=== PATIENT | female | born 1965 | race Hispanic/Latino ===

== ENCOUNTER 2022-04-05 12:08 | Emergency (ER) | payer OTHER ==
[2022-04-05] MEDS ORDERED: ALBUTEROL 2.5 MG/3 ML NEB SOL ONE (12:49)
[2022-04-05 13:10] LABS: Absolute Lymphocytes (CBC) 1.5 K/uL (0.7-4.9); Hematocrit 41.6 % (36.0-45.0); Lymphocytes % 19.7 % (15.3-44.8); MPV 8.9 fL (7.6-11.3); RBC Red Blood Cell Count 4.95 M/uL (3.86-4.86)
--- NOTE | 2022-04-05 13:15 | RAD REPORT ---
EXAM DESCRIPTION: Daisha Single View04/05/2022 1:00 pm CLINICAL HISTORY: sob COMPARISON: none FINDINGS: The lungs appear clear of acute infiltrate. The heart is normal size IMPRESSION: No acute abnormalities displayed
[2022-04-05 13:24] LABS: Protime INR 0.96
[2022-04-05 13:33] LABS: ALT/SGPT 55 U/L (12-78); AST/SGOT 29 U/L (15-37); Albumin 3.7 g/dL (3.4-5.0); Alkaline Phosphatase 115 U/L (45-117); BUN Blood Urea Nitrogen 10 mg/dL (7-18); Bicarbonate 26 mmol/L (21-32); Bilirubin Total 0.2 mg/dL (0.2-1.0); Glomerular Filtration Rate 102 ml/min (=/>90); Glucose Level 130 mg/dL (74-106); Lipase 138 U/L (73-393); Magnesium 2.3 mg/dL (1.8-2.4); NT PRO-BNP 56 pg/mL (<125); Potassium 3.7 mmol/L (3.5-5.1); Protein, Total 7.8 g/dL (6.4-8.2); Sodium Level 145 mmol/L (136-145)
[2022-04-05 13:34] LABS: Bilirubin Direct < 0.1 mg/dL (0-0.2)
--- NOTE | 2022-04-05 14:13 | RAD REPORT ---
EXAM DESCRIPTION: CT - Chest For Pe Angio - 04/05/2022 1:55 pm CLINICAL HISTORY: sob COMPARISON: None. TECHNIQUE: Dynamically enhanced axial 3 mm thick images of the chest were obtained during administra tion of <100> mL Isovue 370 IV contrast. Coronal and oblique reconstruction images were generated and reviewed. Exam utilizes a protocol for optimal evaluation of pulmonary arterial tree. Maximum intensity projections 3D imaging was utilized All CT scans are performed using dose optimization technique as appropriate and may include automated exposure control or mA/KV adjustment according to patient size. FINDINGS: A pulmonary embolus is not seen. A thoracic aortic aneurysm is not noted. A pleural effusion is not seen. A pericardial effusion is not seen. A lung consolidation is not present. IMPRESSION: Negative for a pulmonary embolism.
--- NOTE | 2022-04-05 14:35 | EDPHYS ---
Physician Documentation [facility] Name: Rolf Blackman Age: 56 yrs Sex: Female : 1965 Arrival Date: 04/05/2022 Time: 12:09 Bed 15 Private MD: MARYA Physician Mark iDckson HPI: 04/05 12:20 This 56 yrs old Female presents to ER via Ambulatory with complaints of jh7 Shortness Of Breath. 12:20 Onset: The symptoms/episode began/occurred this morning. Associated signs and symptoms: jh7 Pertinent positives: non-productive cough, Pertinent negatives: chest pain, dizziness, fever, loss of consciousness, nausea, vomiting. Patient states that she was in a meeting and suddenly became short of breath. States that she has a history of bad allergies and has had cough and congestion since this morning. She reports chest tightness, but denies any chest pain.. Historical: - Allergies: 12:18 No Known Allergies; tw2 - Home Meds: 12:18 None [Active]; tw2 - PMHx: 12:18 None; tw2 - PSHx: 12:18 left hand surgery; tw2 - Immunization history:: Client reports receiving the 2nd dose of the Covid vaccine. - Social history:: Smoking status: Patient denies any tobacco usage or history of. ROS: 12:20 Constitutional: Negative for fever, chills, and weight loss, ENT: Negative for injury, jh7 pain, and discharge, Cardiovascular: Negative for chest pain, palpitations, and edema, Abdomen/GI: Negative for abdominal pain, nausea, vomiting, diarrhea, and constipation, Back: Negative for injury and pain, Skin: Negative for injury, rash, and discoloration, Neuro: Negative for headache, weakness, numbness, tingling, and seizure. 12:20 Respiratory: Positive for cough, shortness of breath, Negative for hemoptysis, orthopnea, wheezing. 12:20 All other systems are negative. Exam: 12:20 Constitutional: This is a well developed, well nourished patient who is awake, alert, jh7 and in no acute distress. Cardiovascular: Regular rate and rhythm with a normal S1 and S2. No gallops, murmurs, or rubs. Normal PMI, no JVD. No pulse deficits. 12:20 Abdomen/GI: Soft, non-tender, with normal bowel sounds. No distension or tympany. No guarding or rebound. No evidence of tenderness throughout. Back: No spinal tenderness. No costovertebral tenderness. Full range of motion. Skin: Warm, dry with normal turgor. Normal color with no rashes, no lesions, and no evidence of cellulitis. Neuro: Awake and alert, GCS 15, oriented to person, place, time, and situation. Motor strength 5/5 in all extremities. Sensory grossly intact. Normal gait. 12:20 ENT: TM's: are normal, Nose: nasal drainage, and is seen coming from both nares, that is clear, Posterior pharynx: post nasal drainage. 12:20 Respiratory: the patient does not display signs of respiratory distress, Respirations: normal, Breath sounds: are clear throughout, Respiratory rate: 24 coughing on exam. Vital Signs: 12:16 BP 145 / 69; Pulse 92; Resp 17; Temp 99.2(TE); Pulse Ox 100% on R/A; Weight 65.77 kg tw2 (R); 12:35 BP 133 / 69; Pulse 93; Resp 16 S; Pulse Ox 100% on R/A; jg9 13:30 BP 118 / 68; Pulse 98; Resp 24 S; Pulse Ox 99% on R/A; jg9 14:30 BP 142 / 74; Pulse 103; Resp 13 S; Pulse Ox 99% on R/A; jg9 MDM: 12:21 Patient medically screened. [facility] 14:45 Differential diagnosis: asthma, pneumonia, pulmonary edema, Pulmonary Embolism. Data [facility] reviewed: vital signs, nurses notes, lab test result(s), EKG, radiologic studies, CT scan, plain films. Data interpreted: Pulse oximetry: is 99 %. Interpretation: normal. Counseling: I had a detailed discussion with the patient and/or guardian regarding: the historical points, exam findings, and any diagnostic results supporting the discharge/admit diagnosis, to return to the emergency department if symptoms worsen or persist or if there are any questions or concerns that arise at home. Special discussion: I discussed with the patient/guardian in detail that at this point there is no indication for admission to the hospital. It is understood, however, that if the symptoms persist or worsen the patient needs to return immediately for re-evaluation. ED course: Patient stable at time of discharge. 04/05 12:33 Order name: BMP; Complete Time: 13:58 [facility] 04/05 12:33 Order name: CBC with Diff; Complete Time: 13:33 [facility] 04/05 12:33 Order name: D-Dimer; Complete Time: 13:33 [facility] 02 12:33 Order name: Hepatic Function; Complete Time: 13:59 [facility] 04/05 12:33 Order name: Lipase; Complete Time: 13:59 [facility] 04/05 12:33 Order name: Magnesium; Complete Time: 13:59 [facility] 04/05 12:33 Order name: NT PRO-BNP; Complete Time: 13:59 [facility] 04/05 12:33 Order name: PT-INR; Complete Time: 13:33 [facility] 04/05 12:33 Order name: Ptt, Activated; Complete Time: 13:33 [facility] 04/05 12:33 Order name: XRAY CXR (1 view); Complete Time: 13:33 [facility] 04/05 12:33 Order name: EKG; Complete Time: 12:34 [facility] 04/05 13:35 Order name: CT Chest For PE Angio; Complete Time: 14:33 [facility] 04/05 14:10 Order name: COVID-19 SARS RT PCR (Document "Date of Onset" if Symptomatic); Complete aa5 Time: 16:30 04/05 12:33 Order name: Cardiac monitoring; Complete Time: 13:05 [facility] 04/05 12:33 Order name: EKG - Nurse/Tech; Complete Time: 13:05 [facility] 04/05 12:33 Order name: IV Saline Lock; Complete Time: 13:05 [facility] 04/05 12:33 Order name: Labs collected and sent; Complete Time: 13:05 [facility] 04/05 12:33 Order name: O2 Sat Monitoring; Complete Time: 13:05 [facility] EC:55 Rate is 87 beats/min. Rhythm is regular. QRS [place] is Normal. [place] interval is normal. QRS jh7 interval is normal. QT interval is normal. Clinical impression: NSR w/ Non-specific ST/T Changes. Administered Medications: 13:05 Drug: Albuterol 2.5 mg Route: Inhalation; jg9 Disposition Summary: 04/05/22 14:34 Discharge Ordered Location: Home [facility] Problem: new jh7 Symptoms: have improved [facility] Condition: Stable [facility] Diagnosis - Acute upper respiratory infection, unspecified [facility] - Shortness of breath [facility] Followup: [facility] - With: Private Physician - When: 2 - 3 days - Reason: Recheck today's complaints Discharge Instructions: - Discharge Summary Sheet [facility] - Shortness of Breath, Adult [facility] - Upper Respiratory Infection, Adult [facility] Forms: - Medication Reconciliation Form [facility] - Thank You Letter [facility] - Antibiotic Education [facility] - Prescription Opioid Use [facility] Prescriptions: - ProAir HFA 90 mcg/actuation Inhalation HFA aerosol inhaler - inhale 2 puff by INHALATION route every 4-6 hours; 1 Inhaler; Refills: 0, 7 Product Selection Permitted - [id number] 2-30-10 mg/5 mL Oral syrup - take 10 milliliter by ORAL route every 4 hours; 240 milliliter; Refills: 0, jh7 Product Selection Permitted Signatures: Dispatcher [employer] Shena Craig RN RN tw2 Charla Rascon RN RN jg9 Charla Edwards, FAST FOOD DELIVERY DRIVER [place] [id number]
--- NOTE | 2022-04-05 14:35 | ER ---
Nurse's Notes [facility] Name: Rolf Blackman Age: 56 yrs Sex: Female : 1965 Arrival Date: 04/05/2022 Time: 12:09 Bed 15 Private MD: Diagnosis: Acute upper respiratory infection, unspecified;Shortness of breath Presentation: 04/05 12:16 Chief complaint: she works with me. she said she started feeling dizzy and shaky and tw2 now she says she couldn't breathe. +COUGHING. Chief complaint: also she said she feels like her RIGHT arm is sleepy just today. Coronavirus screen: Client presents with at least one sign or symptom that may indicate coronavirus-19. Standard/surgical mask placed on the client. Provider contacted for isolation considerations. Coronavirus screen: difficulty breathing. Ebola Screen: Patient denies travel to an Ebola-affected area in the 21 days before illness onset. Initial Sepsis Screen: Does the patient meet any 2 criteria? No. Patient's initial sepsis screen is negative. Does the patient have a suspected source of infection? No. Patient's initial sepsis screen is negative. Risk Assessment: Do you want to hurt yourself or someone else? Patient reports no desire to harm self or others. Onset of symptoms was April 05, 2022. 12:16 Method Of Arrival: Ambulatory tw2 12:16 Acuity: IGOR 3 tw2 Triage Assessment: 12:18 General: Appears in no apparent distress. slender, well groomed, Behavior is calm, tw2 cooperative, appropriate for age. Pain: Denies pain. Neuro: Level of Consciousness is awake, alert, obeys commands, Oriented to person, place, time, situation. Respiratory: Reports shortness of breath at rest on exertion cough that is non-productive, Onset: The symptoms/episode began/occurred this morning, the patient has mild shortness of breath. Historical: - Allergies: 12:18 No Known Allergies; tw2 - Home Meds: 12:18 None [Active]; tw2 - PMHx: 12:18 None; tw2 - PSHx: 12:18 left hand surgery; tw2 - Immunization history:: Client reports receiving the 2nd dose of the Covid vaccine. - Social history:: Smoking status: Patient denies any tobacco usage or history of. Screenin:40 Abuse screen: Denies threats or abuse. Denies injuries from another. Nutritional jg9 screening: No deficits noted. Tuberculosis screening: No symptoms or risk factors identified. Fall Risk None identified. Assessment: 12:39 Reassessment: No changes from previously documented assessment. Patient and/or family jg9 updated on plan of care and expected duration. Pain level reassessed. Patient is alert, oriented x 3, equal unlabored respirations, skin warm/dry/pink. Cardiovascular: No deficits noted. Rhythm is sinus rhythm. Cardiovascular: Reports chest pain, shortness of breath. Respiratory: Airway is patent Respiratory effort is even, unlabored, Breath sounds are clear bilaterally. 14:30 Reassessment: Patient and/or family updated on plan of care and expected duration. Pain jg9 level reassessed. Patient is alert, oriented x 3, equal unlabored respirations, skin warm/dry/pink. Patient states feeling better. Patient states symptoms have improved. Vital Signs: 12:16 BP 145 / 69; Pulse 92; Resp 17; Temp 99.2(TE); Pulse Ox 100% on R/A; Weight 65.77 kg tw2 (R); 12:35 BP 133 / 69; Pulse 93; Resp 16 S; Pulse Ox 100% on R/A; jg9 13:30 BP 118 / 68; Pulse 98; Resp 24 S; Pulse Ox 99% on R/A; jg9 14:30 BP 142 / 74; Pulse 103; Resp 13 S; Pulse Ox 99% on R/A; jg9 ED Course: 12:09 Patient arrived in ED. as 12:18 Triage completed. tw2 12:19 Arm band placed on. tw2 12:21 Charla Edwards FNP [facility]. jh7 12:21 Mark Dickson MD is Attending Physician. [facility] 12:39 Charla Rascon RN is Primary Nurse. j9 12:40 No apparent distress. Resting quietly. Pt visited by Friend. j9 12:40 Patient has correct armband on for positive identification. Bed in low position. Call j9 light in reach. Side rails up X 1. 13:00 Inserted saline lock: 20 gauge in right antecubital area, using aseptic technique. j9 Blood collected. 13:02 XRAY CXR (1 view) In Process Unspecified. EDMS 13:57 CT Chest For PE Angio In Process Unspecified. EDMS 15:06 No provider procedures requiring assistance completed. jg9 15:07 IV discontinued. jg9 Administered Medications: 13:05 Drug: Albuterol 2.5 mg Route: Inhalation; jg9 Medication: 12:40 VIS not applicable for this client. jg9 Outcome: 14:34 Discharge ordered by . adan 15:06 Discharged to home ambulatory. jg9 15:06 Condition: improved 15:06 Discharge instructions given to patient, Instructed on discharge instructions, follow up and referral plans. Demonstrated understanding of instructions, follow-up care, medications, Prescriptions given X 2. 15:07 Patient left the ED. jg9 Signatures: Dispatcher [employer] Chiara Washington Tara, RN RN tw2 Charla Rascon, RN RN jg9 Charla Edwards, SOLUTION SPECIALIST SOLUTION SPECIALIST 7
[2022-04-05 15:13] VITALS: TEMP 99.2
[2022-04-05 15:16] VITALS: O2SAT 99
[2022-04-05 15:18] VITALS: BP 142/74
--- NOTE | 2022-04-07 14:33 | EKG ---
Test Date: 2022-04-05 Test Time: 12:48:20 Guardian Ad Litem: IRINA MEASUREMENT RESULTS: Intervals: Rate: 87 NM: 154 QRSD: 76 QT: 364 QTc: 438 [place]: P: 44 NM: 154 QRS: 24 T: 17 INTERPRETIVE STATEMENTS: Normal sinus rhythm Nonspecific ST abnormality Abnormal ECG No previous ECG available for comparison Electronically Signed On 04-07-22 14:32:17 CDT by Tony Tolliver
== END 2022-04-05 15:07 | disposition home or self-care (01) ==
LOC: ER 12:08
DX: J06.9 Acute upper respiratory infection, unspecified (principal); Z20.822 Contact with and (suspected) exposure to COVID-19
CPT/HCPCS: 93005; 85025; 80048; 36415; 83735; 85610; 85379; 80076; 85730; 83690; 83880; 71275; 71045; 99285; U0003; Q9967